=== PATIENT | male | born 1995 | race Caucasian/White ===

== ENCOUNTER → 2017-03-21 | Outpatient (CLI) | payer OTHER ==
[~2017-03-21] MED LIST: NO MEDS
--- NOTE | 2017-03-21 15:09 | RADIOLOGY REPORT PS360 ---
EXAM: LUMBAR SPINE 5 VIEWS HISTORY: ACUTE MIDLINE LOW BACK PAIN ORDERING PHYSICIAN: Franklin Becerra MD PATIENT AGE: 21 years COMPARISON: None FINDINGS: Normal alignment. No fracture or dislocation. No lytic or blastic change. No significant degenerative change. The disc spaces are preserved. IMPRESSION: Negative lumbar spine
== END ==
LOC: RAD 14:31
DX: M54.5 Low back pain (principal)

== ENCOUNTER → 2017-04-17 | Outpatient (CLI) | payer OTHER ==
--- NOTE | 2017-04-17 15:30 | RADIOLOGY REPORT PS360 ---
CT HEAD W/O CONTRAST HISTORY: Headache with dizziness and blurred vision CONCUSSION WITH LOC, HEAD INJURY, LACERATION ORAL CAVITY ORDERING PHYSICIAN: Karson Sanchez MD PATIENT AGE: 21 years COMPARISON: None TECHNIQUE: Axial images obtained without contrast. Brain and bone windows reviewed. FINDINGS: No midline shift, mass effect, intracranial hemorrhage, hydrocephalus, or extra-axial fluid collection is evident. Skin clips are present in the right paracentral frontal region of the scalp The calvarium has an unremarkable appearance. No mastoid effusion. The visualized paranasal sinuses are unremarkable. IMPRESSION: No acute intracranial findings
--- NOTE | 2017-04-17 15:35 | RADIOLOGY REPORT PS360 ---
CT SINUS (MAX-FACIAL W/O CONT) CLINICAL INDICATION: Facial pain following injury, laceration CONCUSSION WITH LOC, HEAD INJURY, LACERATION ORAL CAVITY ORDERING PHYSICIAN: Karson Sanchez MD PATIENT AGE: 21 years COMPARISON: None TECHNIQUE:Axial, sagittal, and coronal images are generated and reviewed without contrast COMPARISON: None FINDINGS: Bones: Unremarkable. No fracture, lytic, or blastic changes evident Extracranial soft tissues: Unremarkable Sinuses: Unremarkable. No air-fluid levels or significant mucosal thickening. Small retention cyst is present in the anterior aspect of the right maxillary sinus at 9 mm. Minimal mucosal thickening involves the left maxillary sinus posteriorly Orbits: Unremarkable Other: No other pertinent findings IMPRESSION: No acute fracture or sinus air-fluid level. Minor paranasal sinus inflammatory change
== END ==
LOC: RAD 14:33
DX: S06.0X1S Concussion with loss of consciousness of 30 minutes or less, sequela (principal); S09.90XS Unspecified injury of head, sequela; S01.512A Laceration without foreign body of oral cavity, initial encounter; R11.2 Nausea with vomiting, unspecified; G44.311 Acute post-traumatic headache, intractable